=== PATIENT | male | born 1960 | race Caucasian/White ===

== ENCOUNTER 2022-10-09 11:00 | Day surgery (SDC) | payer BC ==
[2022-10-07 09:58] LABS: Absolute Lymphocytes (CBC) 1.1 K/uL (0.7-4.9); Lymphocytes % 20.6 % (15.3-44.8); MCV 87.4 fL (80-100); MPV 7.8 fL (7.6-11.3); RBC Red Blood Cell Count 4.46 M/uL (4.33-5.43)
[2022-10-07 10:02] LABS: Protime INR 1.04
--- NOTE | 2022-10-07 10:06 | RAD REPORT ---
EXAM DESCRIPTION: RAD - Chest Pa And Lat (2 Views) - 10/07/2022 9:49 am CLINICAL HISTORY: Pre op pending left heart cath Chest pain. COMPARISON: No comparisons TECHNIQUE: PA and lateral views of the chest were obtained. FINDINGS: The lungs are hyperexpanded compatible with COPD. The heart is upper limit of normal in si ze. No fracture or aggressive bony process. IMPRESSION: COPD without acute process identified. The USPSTF recommends annual screening for lung cancer with low-dose CT (LDCT) in adults aged 50 to 80 years who have a 20 pack-year smoking history and currently smoke or have quit within the past 15 years.
[2022-10-07 10:16] LABS: Potassium 4.6 mmol/L (3.5-5.1)
--- NOTE | 2022-10-08 17:15 | EKG ---
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
[~2022-10-09 11:00] MED LIST: ASPIRIN 325 MG TAB ONE; ATROPINE SULF 1 MG/10 ML SYR IV ONE; CLOPIDOGREL 75 MG TABLET ONE; FENTANYL CITR 100 MCG/2 ML ONE; HEPA 1000U/500MLS 2,000 UNIT/1,000 ML BAG IV ONE; HEPARIN 10,000 UNIT/10 ML VIAL IV ONE; HEPARIN 5000 UNIT/ML 1 ML VIAL ONE; LIDOCAINE 1% 20 ML MDV ONE; MIDAZOLAM HCL 2 MG/2 ML INJ ONE; NA CHLORIDE 0.9% 500 ML ONE; NITROGLYCERIN 100 MCG/ML SYR (for cath lab use only) IV ONE; NITROGLYCERIN/D5W 25 MG/250 ML BTL IV ONE; TICAGRELOR 90 MG TABLET PO ONE; VERAPAMIL HCL 10 MG/4 ML VIAL IV ONE
--- NOTE | 2022-10-09 13:22 | OP ---
Date of Procedure: 10/09/2022 Surgeon: MOUSTAPHA PRIDE Procedures Performed: 1.Selective coronary angiogram. 2.Left heart catheterization. Indication: Abnormal stress test with dyspnea on exertion. Access: Right radial artery 6-Korean closed with TR band. Complications: None. Bleeding: Less than 10 mL. Description Of Procedure: After risks, benefits, alternatives were explained, the patient agreed to procedure and signed informed consent. The patient was brought into cardiac catheterization laborato , prepped and draped in the usual sterile fashion. Then, I accessed right radial artery using pedi atric micropuncture kit, placed a 6-K[place] Slender sheath and took catheter into the aortic root, eng aged the left main, then right coronary artery and took standard views. Catheter was pushed over the wire into the LV, measured LVEDP and pullback did not record any gradient. I removed the catheter a nd sheath and placed TR band with good hemostasis. Findings: 1.Left main; very large and normal. 2.LAD; very large and normal. The proximal portion is aneurysmal, but no disease. Diagonal branche s are normal. 3.Left circumflex is large and normal. Normal OM branches. 4.RCA. It is large and dominant and normal and it is aneurysmal as well. 5.LVEDP normal at 8 mmHg. Conclusion: 1.Normal coronary arteries; however, aneurysmal LAD and RCA, but no disease. 2.Normal LVEDP. Recommendation: Medical management with beta-ruth ann. SR/MODL Voice ID: [id number] Report ID: [id number]
[2022-10-09 13:47] VITALS: BP 112/62; O2SAT 96
== END 2022-10-09 14:04 | disposition home or self-care (01) ==
LOC: CCL 11:00
PROVIDERS: ATTEND Internal Medicine
DX: R94.39 Abnormal result of other cardiovascular function study (principal); I25.41 Coronary artery aneurysm; I34.0 Nonrheumatic mitral (valve) insufficiency; I45.2 Bifascicular block; R06.00 Dyspnea, unspecified; I10 Essential (primary) hypertension; E78.5 Hyperlipidemia, unspecified
CPT/HCPCS: 93005; 85025; 80048; 36415; 85610; 85730; 71046; 93458; 76937; C1893; Q9966; J2001; J1644 ×2; J2250; J3010; J7040; J0461